=== PATIENT | female | born 1980 | race Caucasian/White ===

== ENCOUNTER 2019-01-08 18:07 | Emergency (ER) | payer OTHER ==
[~2019-01-08] VITALS: Ht 162.6 cm; Wt 68.9 kg
[2019-01-08 18:12] VITALS: Ht 162.6 cm; Wt 68.9 kg
[2019-01-08 20:34] VITALS: BP 121/77
== END 2019-01-08 20:34 | disposition home or self-care (01) ==
LOC: ED 18:07
DX: S63.616A Unspecified sprain of right little finger, initial encounter (principal); X58.XXXA Exposure to other specified factors, initial encounter; Y93.89 Activity, other specified; Y92.89 Other specified places as the place of occurrence of the external cause; Y99.8 Other external cause status